=== PATIENT | female | born 1935 | race Caucasian/White ===

== ENCOUNTER 2017-11-11 16:54 | Emergency (ER) | payer OTHER ==
--- NOTE | 2017-11-11 17:52 | ED ---
Upper Extremity Pain - HPI Summary HPI Summary: This is scribe Jayce Martinez documenting for attending Theron Rodríguez MD. A 82 y/o female presents to ED c/o right arm pain reaching 3/10 in severity s/p fall. As per triage, "pt fell on right shoulder. good sensation and pulse distal. pt c/o right arm pain near humerus. Aching". According to the patient, she decided to go over instead of around a porch divider in which her foot got caught and fell full force on her right arm. She also believes she might have hit the wall with her knee on the way down. 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 FHx of no DM, HTN. SHx of no smoking, no recreational drugs or ETOH. No current medications. Patient and her friend brought Ibuprofen with them, but recommended them not to take medication just yet. I, Dr. Rodríguez personally performed the services described in this documentation as scribed in my presence and it is both accurate and complete. - History of Current Complaint Chief Complaint: EDShoulderClavicGuilhermenj Stated Complaint: RT SHOULDER INJURY Time Seen by Provider: 11/11/17 17:22 Hx Obtained From: Patient Mechanism Of Injury: Fall From Height Of: - Tripped over porch divider Onset/Duration: Started Hours Ago, Still Present Timing: Constant Severity Initially: Mild - 3/10 Severity Currently: Mild - 3/10 Pain Location: Arm - Right Character: Aching Aggravating Factor(s): Nothing Alleviating Factor(s): Nothing Associated Signs & Symptoms: Positive: Negative - Allergies/Home Medications Allergies/Adverse Reactions: Allergies Allergy/AdvReac Type Severity Reaction Status Date / Time No Known Allergies Allergy Verified 11/11/17 16:56 Home Medications: Home Medications NK [No Home Medications Reported] 11/11/17 [History Confirmed 11/11/17] PMH/Surg Hx/FS Hx/Imm Hx Endocrine/Hematology History: Denies: Hx Diabetes Cardiovascular History: Denies: Hx Hypertension Infectious Disease History: No Infectious Disease History: Denies: Traveled Outside the [place] in Last 30 Days - Family History Known Family History: Negative: Hypertension, Diabetes - Social History Alcohol Use: None Substance Use Type: Reports: None Smoking Status (MU): Former Smoker Review of Systems Negative: Fever Positive: Other - POSITIVE: Right arm pain All Other Systems Reviewed And Are Negative: Yes Physical Exam - Summary Physical Exam Summary: VITAL SIGNS: Reviewed. GENERAL: Patient is a well-developed and nourished female who is lying comfortable in the stretcher. Patient is not in any acute respiratory distress. HEAD AND FACE: No signs of trauma. No ecchymosis, hematomas or skull depressions. No sinus tenderness. EYES: PERRLA, EOMI x 2, No injected conjunctiva, no nystagmus. EARS: Hearing grossly intact. Ear canals and tympanic membranes are within normal limits. MOUTH: Oropharynx within normal limits. NECK: Supple, trachea is midline, no adenopathy, no JVD, no carotid bruit, no c- spine tenderness, neck with full ROM. CHEST: Symmetric, no tenderness at palpation LUNGS: Clear to auscultation bilaterally. No wheezing or crackles. CVS: Regular rate and rhythm, S1 and S2 present, no murmurs or gallops appreciated. ABDOMEN: Soft, non-tender. No signs of distention. No rebound no guarding, and no masses palpated. Bowel sounds are normal. EXTREMITIES: Right shoulder deformity, ROM secondary to pain, good pulse, good capillary refill. NEURO: Alert and oriented x 3. No acute neurological deficits. Speech is normal and follows commands. SKIN: Dry and warm Triage Information Reviewed: Yes Vital Signs On Initial Exam: Initial Vitals Temp Pulse Resp BP Pulse Ox 97.4 F 77 16 156/80 100 11/11/17 16:57 11/11/17 16:57 11/11/17 16:57 11/11/17 16:57 11/11/17 16:57 Vital Signs Reviewed: Yes Diagnostics - Vital Signs Vital Signs Temp Pulse Resp BP Pulse Ox 11/11/17 16:57 97.4 F 77 16 156/80 100 - Laboratory Result Diagrams: 11/11/17 19:13 11/11/17 19:13 Lab Statement: Any lab studies that have been ordered have been reviewed, and results considered in the medical decision making process. - Radiology SHOULDER XR Radiology Interpretation Completed By: Radiologist - INFERIOR SUBLUXATION OF THE HUMERAL HEAD. ED PHYSICIAN REVIEWED THIS RADIOLOGY REPORT. CXR Radiology Interpretation Completed By: Radiologist - NO EVIDENCE FOR ACUTE FINDING. ED PHYSICIAN REVIEWED THIS RADIOLOGY REPORT. - EKG 1904 Cardiac Rate: NL - 73 BPM EKG Rhythm: Sinus Rhythm EKG Interpretation: No ST elevations, PVC Re-Evaluation - Re-Evaluation First Eval Re-Evaluation Time: 18:55 Change: Improved Comment: Patient is feeling better. Second Eval Re-Evaluation Time: 19:23 Change: Improved Comment: Patient is feeling much better. Patient is given Ibuprofen for pain. Course/Dx - Course Course Of Treatment: The patient was found to have increased [place] in [facility] [place] The patient will follow up with PCP for better control of BP. Assessment/Plan: This patient is an 82-year-old female who presents to the emergency department with chief complaint of an accidental fall this afternoon. She reports that she was trying to climb a wall approximately 2- feet up and she tripped and fell, landing on the right shoulder. X-ray of the right shoulder he impression comminuted displaced fracture of the surgical neck of the humerus. He feels subluxation of the humeral head. Blood work without any significant abnormality. Except for glucose of 142. I discussed the case with Dr. Estrada from orthopedics and she recommends for the patient to be placed in the shoulder immobilizer and or sling and these charts the patient home with pain medications. Initially the patient declined pain medications. However she would only take 3 [place] with Zofran and she will take it only if she needs it. Patient also declined any prescriptions for pain medications. She reports that she has ibuprofen and she will take only ibuprofen. Patient is hemodynamically stable alert oriented 3. - Diagnoses Differential Diagnosis/HQI/PQRI: Positive: Bursitis, Contusion, Fracture (Closed ), Hematoma, Strain, Sprain Provider Diagnoses: Fracture of neck of humerus - Physician Notifications Discussed Care of Patient With: Kaylan Estrada Time Discussed With Above Provider: 18:55 Instructed by Provider To: Other - Reviewed scans with Dr. Estrada. Patient is to be put in shoulder immobilizer. Will see tomorrow morning. Discharge - Sign-Out/Discharge Documenting (check all that apply): Patient Departure - Discharge Plan Condition: Stable Disposition: HOME Patient Education Materials: Arm Fracture in Adults (ED) Referrals: [facility] [Outside] - 1 Week Kaylan Estrada MD [Medical Doctor] - 1 Day Additional Instructions: FOLLOW UP WITH ORTHOPEDICS, DR. ESTRADA TOMORROW. ' FOLLOW UP WITH YOUR PRIMARY CARE PROVIDER WITHIN ONE WEEK FOR HIGH BLOOD PRESSURE NOTED TODAY. RETURN TO ED FOR ANY WORSENING OR NEW SYMPTOMS. Attestations Scribe Attestation: This is scribe Jayce Martinez documenting for attending Theron Rodríguez MD. User Type: Provider with Scribe Provider Attestation: The documentation recorded by the scribe accurately reflects the service I personally performed and the decisions made by me.
--- NOTE | 2017-11-11 18:19 | RAD ---
INDICATION: Right shoulder injury. TECHNIQUE: 4 views of the right shoulder were obtained. FINDINGS: The bones appear osteopenic. There is inferior subluxation of the humeral head. There is a comminuted displaced fracture of the surgical neck of the humerus. IMPRESSION: 1. COMMINUTED DISPLACED FRACTURE OF THE SURGICAL NECK OF THE HUMERUS. 2. INFERIOR SUBLUXATION OF THE HUMERAL HEAD.
[2017-11-11 19:15] VITALS: BP 143/81
[2017-11-11 19:19] LABS: ABS Basophils 0.1 10^3/ul (0-0.2); ABS Eosinophils 0.1 10^3/ul (0-0.6); ABS Lymphocytes 1.1 10^3/ul (1.0-4.8); ABS Monocytes 0.4 10^3/ul (0-0.8); ABS Nucleated RBC 0 10^3/ul; Eosinophil % 1.3 % (0-6); Hematocrit 40 % (35-47); Hemoglobin 13.6 g/dl (12.0-16.0); Lymphocyte % 19.7 % (25-47); Mean Corpuscular HGB Conc 34 g/dl (31-36); Mean Corpuscular Hemoglobin 31 pg (27-31); Mean Corpuscular Volume 92 fL (80-97); Mean Platelet Volume 8.6 um3 (7.4-10.4); Nucleated Red Blood Cells % 0.1; Platelet Count 235 10^3/ul (150-450); Red Cell Distribution Width 14 % (10.5-15); White Blood Count 5.7 10^3/ul (3.5-10.8)
[2017-11-11] MEDS ORDERED: Ibuprofen TAB* 800 MG PO ONE (19:24)
[2017-11-11] MEDS ORDERED: Ondansetron ODT TAB* 4 MG PO ONE (19:24)
[2017-11-11] MEDS ORDERED: HYDROcodone/ACETAMIN 5-325 MG* 1 TAB PO ONE (19:24)
[2017-11-11 19:40] LABS: EGFR Non-African American 83.3 (>60)
--- NOTE | 2017-11-11 20:30 | RAD ---
INDICATION: Trauma. COMPARISON: Comparison is made with a prior study from January 29, 2011. TECHNIQUE: A portable view of the chest was obtained. FINDINGS: Cardiac and mediastinal contours appear to be within normal limits. The lungs are underinflated. There is suggestion of mild atelectasis at both lung bases. The lungs are otherwise clear. No pleural effusion or pneumothorax is seen. IMPRESSION: NO EVIDENCE FOR ACUTE FINDING.
== END 2017-11-11 20:40 | disposition home or self-care (01) ==
LOC: ED 16:54
DX: S42.211A Unspecified displaced fracture of surgical neck of right humerus, initial encounter for closed fracture (principal); W18.09XA Striking against other object with subsequent fall, initial encounter; Y92.89 Other specified places as the place of occurrence of the external cause; Z87.891 Personal history of nicotine dependence
CPT/HCPCS: 36415; 71045; 80053; 85025; 93005; 99283; A9270-GY

== ENCOUNTER 2018-06-27 17:52 | Emergency (ER) | payer OTHER ==
--- OUTSIDE RECORDS SUMMARY | 2018-06-27 17:58 | XMS REPORT | Continuity of Care Document ---
:1935 External Reference #:[id number] Author Name Karen Barclay M.D. Address [address] [place] [address] [address] [place] [address] Care Team Providers Name Role Phone Karen Barclay M.D. Care Team Information Hull Inspector Unavailable Payers Date Identification Numbers Payment Provider Subscriber Effective: 2018 Policy Number: [id number] [facility] Health Plan Yohana Brown PayID: [id number] [address] [place] [id number] Advance Directives Description No Information Available Problems Description No Information Family History Date Family Member(s) Observation Comments General Cancer Mother due to Natural Causes () Children None Siblings 6 Social History Type Date Description Comments Sex Unknown Work Status Retired ETOH Use Denies alcohol use Tobacco Use Start: Unknown End: Unknown Patient is a former smoker Recreational Drug Use Denies Drug Use Allergies, Adverse Reactions, Alerts Description No Known Drug Allergies Medications Medication Date Status Form Strength Qnty SIG Indications Ordering Provider PT Tiw X 68 WKS 05/30/2018 Active m25.551, M25.551 Karen Barclay m54.5,m1 Fred Sawant 5.9 M54.5 M15.9 Immunizations Description No Information Available Vital Signs Date Vital Result Comment 05/30/2018 2:06pm BP Systolic 128 mmHg BP Diastolic 62 mmHg Height 64 inches 5'4" Weight 130.00 lb BMI (Body Mass Index) 22.3 kg/m2 Heart Rate 75 /min Respiratory Rate 18 /min Results Description No Information Available Procedures Description No Information Available Encounters Type Date Location Provider Dx Diagnosis Office Visit 05/30/2018 [facility] Karen Barclay, Z00.01 Encounter for 2:30p M.DGabino general adult medical exam w abnormal findings E78.2 Mixed hyperlipidemia M15.9 Polyosteoarthritis, unspecified M25.511 Pain in right shoulder M25.551 Pain in right hip M54.5 Low back pain E55.9 Vitamin D deficiency, unspecified L20.9 Atopic dermatitis, unspecified J30.9 Allergic rhinitis, unspecified H53.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 Plan of Treatment 05/30/2018 - Karen Barclay M.D.Z00.01 Encounter for general adult medical examination with abnormal findingsComments:GOOD NUTRITION /EXERCISEDENTAL/ FLOSSING/ SELF CAREDROWNING/ SUN SAFETYSEAT BELT/ DRIVING SAFETYVIOLENCE PREVENTION/ GUN SAFETY"SAFE AT HOME"EDUCATION GOALS/ ACTIVITIESSOCIAL INTERACTIONFAMILY FUNCTIONINGSELF CONTROLDEPRESSION/ ANXIETYYEARLY PHYSICAL WELLNESS EVALUATION RTC FOR FBWE78.2 Mixed hyperlipidemiaComments:DIET REVIEWED CONTINUE DIETWT LOSSF/U LAB FBWM15.9 Polyosteoarthritis, unspecifiedNew Medication:PT Tiw X 68 WKS - m25.551,m54.5,m15.9Comments: EXERCISE/HEAT/MESSAGETYLENOL OR MOTRIN PRNAVOID HEAVY LIFTINGWT LOSSM25.511 Pain in right shoulderComments:EXERCISE/HEAT /MESSAGE AVOID HEAVY LIFTINGTYLENOL OR MOTRIN PRNM25.551 Pain in right hipNew Medication:PT Tiw X 68 WKS - m25.551,m54.5,m15.9Comments:EXERCISE/HEAT/MESSAGETYLENOL OR MOTRIN PRNAVOID HEAVY LIFTINGWT LOSSReferral:Fernie Harrington MD, Orthopedic/Phys TherLaSaud saenz LPT, Physical RsugxiqiwQ25.5 Low back painNew Medication: PT Tiw X 68 WKS - m25.551,m54.5,m15.9Comments:EXERCISE/HEAT /MESSAGEAVOID HEAVY LIFTING WT LOSSTYLENOL OR MOTRIN PRNE55.9 Vitamin D deficiency, unspecifiedComments:INCREASE EXPOSURE TO SUNREVIEW OF DIETL20.9 Atopic dermatitis, unspecifiedComments:SKIN CARE INSTRUCTIONS EUCERIN CREAM OR BABY OIL 2-3 APPLICATION PER DAYUSE MOISTURIZING SOAPAVOID PROLONGED WATER EXPOSUREAVOID USING HOT WATER IN QXDXBBX92.9 Allergic rhinitis, unspecifiedComments:INCREASE PO FLUID USE ANTIHISTAMINE PRN SECOND HAND SMOKING AKVCLQCYYW94.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Comments:USE GLASSES/ CONTACTSF/U WITH OPHTHALMOLOGY
--- OUTSIDE RECORDS SUMMARY | 2018-06-27 17:58 | XMS REPORT | Continuity of Care Document ---
:1935 External Reference #:[id number] Author Name Bernarda Bingham Care Team Providers Name Role Phone Patient's Choice Primary Care Physician Unavailable Payers Date Identification Numbers Payment Provider Subscriber Policy Number: [id number] [facility] Health Ins Ppo/Epo Yohana Brown Group Number: [id number] [address] PayID: [id number] [place] [address] Expires: 2018 Policy Number: [id number] [employer] Yohana Brown PayID: [id number] [address] [place] [address] Expires: 2017 Policy Number: [id number] [employer] Yohana Brown PayID: [id number] [address] [address] [place] [address] Advance Directives Description No Information Available Problems Date Description Provider Status Onset: 06/05/2018 Prosthetic arthroplasty of the hip Rell Neff M.D. Active Family History Description No Information Available Social History Type Date Description Comments Sex Unknown Tobacco Use Start: Unknown End: Unknown Patient is a former smoker Smoking Status Reviewed: 06/05/18 Patient is a former smoker Allergies, Adverse Reactions, Alerts Description No Known Drug Allergies Medications Medication Date Status Form Strength Qnty SIG Indications Ordering Provider Vitamin C Active Capsules 500mg 1 by Unknown 00 mouth every day Magnesium Active Capsules 500mg twice Unknown 00 daily Aspirin 81 Low Hx Chewtabs 81mg 1 by Unknown Dose 00 - mouth 06/05/19 every day 19 Immunizations Description No Information Available Vital Signs Date Vital Result Comment 06/05/2018 2:14pm Height 65 inches 5'5" Weight 130.00 lb BP Systolic 112 mmHg BP Diastolic 60 mmHg Respiratory Rate 20 /min Body Temperature 98.2 F Pain Level 5 BMI (Body Mass Index) 21.6 kg/m2 11/12/2017 3:23pm Height 65 inches 5'5" Heart Rate 70 /min Respiratory Rate 16 /min Body Temperature 97.6 F Pain Level 6 02/25/2014 9:05am Height 65 inches 5'5" Weight 115.00 lb Heart Rate 71 /min BP Systolic 107 mmHg BP Diastolic 63 mmHg BMI (Body Mass Index) 19.1 kg/m2 Results Description No Information Available Procedures Description No Information Available Encounters Type Date Location Provider Dx Diagnosis Office Visit 11/12/2017 Orthopedic Trent Logan S42.211A Unsp disp fx of 1:45p [facility] MD surgical neck of right humerus, init Office Visit 02/25/2014 Orthopedic Autumn Mota, 716.95 Arthropathy Unspec 8:15a [facility] Office Visit 10/07/2012 Orthopedic Rell Neff 716.95 Arthropathy Unspec 1:45p [facility] Office Visit 07/29/2012 Orthopedic Rell Neff 716.95 Arthropathy Unspec 1:00p [facility] Plan of Treatment 06/05/2018 - Rell Neff M.D.Z96.641 Presence of right artificial hip jointFollow up:Follow up: 12-24 months and as needed Stay active as able Keep up your right hip exercises
[2018-06-27 18:14] VITALS: BP 121/66
--- NOTE | 2018-06-27 18:44 | UC ---
Palpitation/Dysrhythmia HP - HPI Summary HPI Summary: 82-year-old woman comes in with a chief complaint of palpitations. This morning for about an hour and a half she had intermittent palpitations where she felt her heart skipping and racing and her left lower anterior chest. He was intermittent. She would feel 2 or 3 or 4 beats and then it would go back to normal. She denies any chest pain shortness of breath weakness or lightheadedness. Since the 1-1/2 hour episode this morning the patient has had several other episodes of palpitations but much less frequently. Still asymptomatic. Denies any edema. Just finished an antibiotic for a dental procedure. No prior cardiac history. - History of Current Complaint Chief Complaint: UCCardiac Stated Complaint: PALIPATATIONS Time Seen by Provider: 06/27/18 17:54 Pain Intensity: 0 - Allergy/Home Medications Allergies/Adverse Reactions: Allergies Allergy/AdvReac Type Severity Reaction Status Date / Time No Known Allergies Allergy Verified 05/18/18 14:50 Home Medications: Home Medications Ascorbic Acid [Vitamin C] 1,000 mg PO DAILY 06/27/18 [History Confirmed 06/27/18 ] [place]-3 Fatty Acids (Nf) [Fish Oil (NF)] 1 cap PO DAILY 06/27/18 [History Confirmed 06/27/18] PMH/Surg Hx/FS Hx/Imm Hx Previously Healthy: Yes - Surgical History Surgical History: Yes Surgery Procedure, Year, and Place: Right knee. Right hip - Family History Known Family History: Negative: Hypertension, Diabetes - Social History Alcohol Use: None Substance Use Type: None Smoking Status (MU): Former Smoker Review of Systems All Other Systems Reviewed And Are Negative: Yes Constitutional: Positive: Negative Skin: Positive: Negative Eyes: Positive: Negative ENT: Positive: Negative Respiratory: Positive: Negative. Negative: Shortness Of Breath Cardiovascular: Positive: Palpitations. Negative: Chest Pain Gastrointestinal: Positive: Negative Motor: Positive: Negative Neurovascular: Positive: Negative Musculoskeletal: Positive: Negative. Negative: Edema Neurological: Positive: Negative Psychological: Positive: Negative Is Patient Immunocompromised?: No Physical Exam Triage Information Reviewed: Yes Appearance: Well-Appearing, No Pain Distress, Well-Nourished Vital Signs: Initial Vital Signs Temp 98.6 F 06/27/18 18:12 Pulse 78 06/27/18 18:12 Resp 18 06/27/18 18:12 BP 121/66 06/27/18 18:12 Pulse Ox 96 06/27/18 18:12 Vital Signs Reviewed: Yes Eye Exam: Normal Eyes: Positive: Conjunctiva Clear Neck: Positive: Supple Respiratory: Positive: Lungs clear, Normal breath sounds, No respiratory distress Cardiovascular: Positive: RRR Musculoskeletal Exam: Normal Musculoskeletal: Positive: Strength Intact, ROM Intact, No Edema, Other: - NO CALF TENDERNESS Neurological Exam: Normal Neurological: Positive: Alert, Muscle Tone Normal Psychological Exam: Normal Psychological: Positive: Age Appropriate Behavior Skin Exam: Normal Diagnostics - EKG Cardiac Rate: NL - AT 1759 Cardiac Rhythm: Sinus: Normal - 69 BPM Ectopy: None ST Segment: Normal EKG Comparison: No Significant Change - 11/11/17 Palpitations Course/Dx - Course Course Of Treatment: I discussed the EKG with the patient. I do not see any irregularities and the EKG. Patient is asymptomatic here in clinic no palpitations no chest pain no shortness of breath she feels well. She does not have any pedal edema or calf tenderness. I discussed with the patient further evaluation the palpitations to include timely blood work would be best accomplished in the emergency department. Patient declined going to the emergency department at this time. I 'm going to refer the patient to [facility] as she does not have a primary care doctor in this area. I also let her know that if she has anymore palpitations or she has any chest pain shortness of breath she feels like passing out or any questions or concerns she is to go to the emergency department for further evaluation care. - Differential Dx/Diagnosis Provider Diagnosis: Palpitations Discharge - Sign-Out/Discharge Documenting (check all that apply): Patient Departure All imaging exams completed and their final reports reviewed: No Studies - Discharge Plan Condition: Stable Disposition: HOME Patient Education Materials: Heart Palpitations (ED) Referrals: [facility] [Outside] [facility] [Outside] Additional Instructions: FOLLOW UP WITH [facility] CALL TOMORROW TO BE SEEN THERE FOR YOUR PALPITATIONS. GO TO THE EMERGENCY DEPARTMENT FOR ANY WORSENING OF YOUR CONDITION; CHEST PAIN, SHORTNESS OF BREATH, MORE PALPITATIONS, YOU FEEL LIKE PASSING OUT OR QUESTIONS OR CONCERNS. - Billing Disposition and Condition Condition: STABLE Disposition: Home
== END 2018-06-27 19:02 | disposition home or self-care (01) ==
LOC: UCEAST 17:52
DX: R00.2 Palpitations (principal); Z87.891 Personal history of nicotine dependence
CPT/HCPCS: 93005; 99211; G0463